=== PATIENT | female | born 1975 | race Hispanic/Latino ===

== ENCOUNTER → 2019-09-01 | Day surgery (SDC) | payer OTHER ==
[~2019-09-01] MED LIST: ACETAMINOPHEN/CODEINE 300MG - 30MG TAB ONE; ATORVASTATIN CA20 MG PO; DEXAMETHASONE SOD PHOS INJ 4 MG/ML VIAL ONE; EPINEPHRINE HCL 1:1000 1ML 1 MG/ML AMP ONE; FENTANYL CITRATE/PF 100MCG/2 ML INJ ONE; GLYCOPYRROLATE INJ 1MG/ 5 ML SYR ONE; LABETALOL HCL 20 ML ONE; LIDOCAINE 1% W/EPINEPHRINE 20 ML VIAL ONE; LIDOCAINE HCL 2% LOCAL INJ 5 ML SDV VIAL INJ ONE; METFORMIN HCL500 MG PO; MIDAZOLAM HCL 2 MG/2 ML VIAL ONE; NEOSTIGMINE 5 MG/5ML SYR ONE; ONDANSETRON HCL INJ 2MG/ML 2ML 2 MG/ML VIAL ONE; PROPOFOL IV EMULSION 10 MG/ML 20 ML VIAL ONE; ROCURONIUM BROMIDE 10 MG/ML 5ML VIAL ONE
[2019-09-01 10:00] VITALS: BP 129/89
--- NOTE | 2019-09-01 12:01 | Operative Report ---
DATE OF PROCEDURE: 09/01/2019 SURGEON: George Ingram MD PREOPERATIVE DIAGNOSES: 1. Chronic sinusitis. 2. Nasal obstruction. POSTOPERATIVE DIAGNOSES: 1. Chronic sinusitis. 2. Nasal obstruction. OPERATIVE PROCEDURE: 1. Septoplasty. 2. Bilateral resection of diana bullosa. 3. Right maxillary sinus antrostomy. 4. Right resection of inflamed tissue and maxillary antrum. ANESTHESIA: [facility]. INDICATIONS: This 43-year-old female has history of nasal obstruction, postnasal drip discharge from her nose and also epistaxis, especially on the left side for over 3-4 years. The patient's condition has been treated with more than 12-16 weeks of antibiotics, topical nasal spray and saline sinus irrigation with no improvement. The patient also had cauterization of the septum on the left side with no improvement of the condition. On examination, she was noted to have a deviated nasal septum to the left side about 20% with about 20% to 30%. The bleeding area was just anterior to the deviated septal area. She also has a septal spur on the left about 30%. The patient also has a curvature on the right septum in the anterior portion leading to a midportion deviated nasal septum on the right. CT scan of paranasal sinuses done before surgery showed the patient has bilateral diana bullosa, maxillary sinus involvement on the right side, and confirmed deviated nasal septum. It was decided that septoplasty and endoscopic sinus surgery and other necessary procedure will be beneficial for her. DESCRIPTION OF PROCEDURE: The patient was taken to the operating room, put under general anesthesia, endotracheally intubated. The nose was injected with 1% Xylocaine with 1:100,000 epinephrine for hemostasis. An epinephrine-soaked pledget was inserted in the nose and subsequently removed. At the time of surgery, the area that has been bleeding on the left side was still raw with some oozing. The left paranasal sinuses were approached first. The middle turbinate was medialized using the microdebrider. The lateral portion of the middle turbinate was resected by resecting the diana bullosa. The right paranasal sinuses were approached. The middle turbinate was medialized. Again using the microdebrider, the lateral portion of the middle turbinate was resected, thereby opening up the diana bullosa on the right side also. Using a curved probe, the natural ostia of the maxillary sinus was entered. This was enlarged anteriorly and posteriorly using backbiter and Thru-Cut forceps respectively. The inflamed tissue in the maxillary antrum was dissected using the microshaver. The septoplasty was performed. A hemitransfixion incision was done on the left side. The mucoperichondrial flap was elevated on the left. The bony cartilaginous structure was encountered and this was . The perpendicular plate of the ethmoid was transected. This was removed along with the vomer. The septal spur cartilaginous portion removed using a [place] elevator and bony spur using a 4 mm straight chisel. The quadrangular cartilage after being freed from posterior-inferior constraint was able to swing back into the midline. The hemitransfixion incision was closed using 4-0 chromic suture in the interrupted fashion. The septal whipstitch was tied using 4-0 plain gut suture to reapproximate the mucoperichondrial flap and prevent septal hematoma formation. NasoPore was inserted in the sinus cavities on either side. This was done to prevent synechiae formation and for hemostasis. A piece of NasoPore was also put along the floor of the nose on the left side against the area that was well on the mucoperichondrial flap on the left to prevent synechiae formation and help the healing process. The patient tolerated the above procedure well. Estimated blood loss was about 20 mL. She was given 20 mg of Decadron intraoperatively. The patient was able to be transferred to recovery room in stable condition. MD ZEINAB Garduno/JOEL /[id number]
--- NOTE | 2019-09-02 13:31 | Pre Op History & Physical ---
CHIEF COMPLAINT: Chronic sinusitis, nasal obstruction, epistaxis. HISTORY OF PRESENT ILLNESS: This 43-year-old female has history of nasal obstruction with epistaxis, worse on the left side. This has been going on for 3-4 years. The patient has no history of blood dyscrasia. She has no trauma to the nose. The patient has complained of frontal and maxillary pain. She also complained of facial pain, which alternate. The patient's condition has been treated with the 12 weeks of antibiotics including Ceftin by myself with no improvement. CT scan of paranasal sinuses showed the patient has chronic sinusitis with involvement of the maxillary sinus on the right side. Carrie bullosa and deviated nasal septum on both the right and the left. REVIEW OF SYSTEMS: System review showed no recent cardiovascular, respiratory, or GI problem. PAST MEDICAL HISTORY: The patient has type 2 diabetes. PAST SURGICAL HISTORY: She has no previous surgery. ALLERGIES: SHE HAS NO KNOWN ALLERGY TO MEDICATION. MEDICATIONS: She is on: 1. Metformin. 2. Lisinopril. 3. Atorvastatin. SOCIAL HISTORY: She is a nonsmoker, nondrinker. FAMILY HISTORY: Noncontributory. PHYSICAL EXAMINATION: VITAL SIGNS: On examination, the patient's vital signs were within normal limits. GENERAL: The patient is a Italian speaker. EARS: Show normal tympanic membranes bilaterally. NASAL: Show deviated nasal septum to the left about 30% and to the right and midportion about 20%. OROPHARYNX AND ORAL CAVITY: Show 2+ tonsils bilaterally with no exudate or debris. She is Mallampati level 2. NECK: Show no lymph node or thyroid palpable. CHEST: Show good air entry bilaterally. CARDIOVASCULAR: Show S1, S2. No murmur noted. ASSESSMENT AND PLAN: Mrs. Mckenzie has chronic sinusitis, nasal obstruction, epistaxis, which has been going on for 3-4 years and has been resistant to conservative therapy, which has been treated with antibiotics, topical nasal steroid, sinus irrigation for many months. Suggested treatment is endoscopic sinus surgery, septoplasty, and other necessary procedure. The complication of procedure includes, but not limited to bleeding, infection, CSF leak, blindness, double vision, meningitis, septal perforation, septal hematoma, persistent nasal obstruction, persistent nasal crusting, nasal deformity, persistent recurrence of the epistaxis, and sinus problem. Alternatives will be continue observation, continue antibiotic therapy, topical nasal steroid therapy, systemic steroid therapy, decongestant. The patient has elected to undergo surgical procedure. MD ZEINAB Garduno/MODL /[id number] cc: Og Carter
== END | disposition home or self-care (01) ==
LOC: EDBD 06:20 → OR 06:20
PROVIDERS: ATTEND Otolaryngology Otolaryngology/Facial Plastic Surgery
DX: J32.0 Chronic maxillary sinusitis (principal); J34.89 Other specified disorders of nose and nasal sinuses; J34.2 Deviated nasal septum; R04.0 Epistaxis; E11.9 Type 2 diabetes mellitus without complications; E78.5 Hyperlipidemia, unspecified; I10 Essential (primary) hypertension; M54.2 Cervicalgia; Z88.1 Allergy status to other antibiotic agents; Z79.84 Long term (current) use of oral hypoglycemic drugs
CPT/HCPCS: 30520; 31240; 31267; 36415; 81025; 82948; 88300; 88305; 93005; J0171; J1100; J2001; J2250; J2405; J2704; J3010; J3490